=== PATIENT | male | born 1950 | race Caucasian/White ===

== ENCOUNTER 2018-11-28 07:47 | Day surgery (SDC) | payer OTHER ==
[~2018-11-28] VITALS: Ht 180.3 cm; Wt 96.5 kg
[~2018-11-28 07:47] MED LIST: 24HR ALLERGY REL5 MG PO; ATOR10 PO; Aspirin EC81 MG PO; CEFP200 PO; CIPR500 PO; CLIND PH-BENZOY45 GM TP; CLOP75 PO; DIAZ5 PO; DOCU100 PO; EZET10; EZET10 PO; FISH OIL 1,0001 EAC1 PO; Flomax0.4 MG PO; HYDACE5 PO; Hydrocodone-Ap1 EA23 PO; LEVFLO500 PO; LEVOCETIRIZINE D5 MG PO; METR500 PO; Magnesium200 MG; Norco 5-325 Ta1 EACH PO; PRAV20 PO; Pravastatin Sod40 MG PO; Prinivil10 MG PO; RXHYDACE PO; TAMS.4ER PO; UBID100 PO; Viagra100 MG PO; ZINC15
== END 2018-11-28 10:45 | disposition home or self-care (01) ==
LOC: ORSCSDS 07:47
PROVIDERS: Podiatrist Foot & Ankle Surgery
PROC: 0QBR0ZZ Excision of Left Toe Phalanx, Open Approach (ICD-10-PCS; principal; 2018-11-28 09:00)
PROC: 0HDRXZZ Extraction of Toe Nail, External Approach (ICD-10-PCS; principal; 2018-11-28 09:00)
DX: M1A.9XX1 Chronic gout, unspecified, with tophus (tophi) (principal); L60.0 Ingrowing nail; M25.70 Osteophyte, unspecified joint; I10 Essential (primary) hypertension; Z79.899 Other long term (current) drug therapy; Z79.82 Long term (current) use of aspirin
CPT/HCPCS: 88305; J0690; J2250; J3010; J7120

== ENCOUNTER → 2018-12-04 | Outpatient (CLI) | payer OTHER | END | disposition home or self-care (01) | LOC: LAB SHORT 12:02 → PLD 12:02 | DX: L57.8 Other skin changes due to chronic exposure to nonionizing radiation (principal); L98.9 Disorder of the skin and subcutaneous tissue, unspecified | CPT/HCPCS: 88305; 88312 ==

== ENCOUNTER 2019-01-15 09:19 | Day surgery (SDC) | payer OTHER ==
[~2019-01-15] VITALS: Ht 180.3 cm; Wt 93.9 kg
[~2019-01-15 09:19] MED LIST changes: +AZO BLADDER CO300 MG PO; +FLAXSEED1000 MG PO; +PROSTATE HEALT1 EACH PO
[2019-01-15] MEDS ORDERED: ALLO100 (09:53)
--- NOTE | 2019-01-15 10:07 | NUR ---
01/15/[address] & DR. SHAJI TALAVERA TO PROCEED WITH NURSE SEDATION.
== END 2019-01-15 11:36 | disposition home or self-care (01) ==
LOC: ORSCSDS 09:19
PROVIDERS: Surgery
PROC: 0DBL8ZX Excision of Transverse Colon, Via Natural or Artificial Opening Endoscopic, Diagnostic (ICD-10-PCS; principal; 2019-01-15 10:15)
PROC: 0DBM8ZX Excision of Descending Colon, Via Natural or Artificial Opening Endoscopic, Diagnostic (ICD-10-PCS; principal; 2019-01-15 10:15)
DX: Z12.11 Encounter for screening for malignant neoplasm of colon (principal); D12.3 Benign neoplasm of transverse colon; D12.4 Benign neoplasm of descending colon; I10 Essential (primary) hypertension; Z79.01 Long term (current) use of anticoagulants; Z79.82 Long term (current) use of aspirin; Z79.899 Other long term (current) drug therapy
CPT/HCPCS: 88305; J7120

== ENCOUNTER → 2019-07-16 | Outpatient (CLI) | payer OTHER ==
[~2019-07-16] MED LIST changes: +ALLO100
[2019-07-16 08:33] LABS: Source, Urine Clean Catch
[2019-07-16 09:08] LABS: Appearance, Urine Clear (Clear); Bilirubin, Urine Neg (Neg); Blood, Urine 3+ (Neg); Color, Urine Yellow (P-Yellow); Glucose Qualitative, Urine Neg (Neg); Ketones, Urine Neg (Neg); Leukocyte Esterase, Urine 1+ (Neg); Nitrite, Urine Neg (Neg); Protein, Urine 2+ (Neg); Urobilinogen, Urine NORM (Normal)
[2019-07-16 09:24] LABS: Squamous Epithelial Cells Few /hpf (Few)
[2019-07-16 09:25] LABS: Bacteria Rare /hpf
== END | disposition home or self-care (01) ==
LOC: LAB 08:30 → LAB SHORT 08:30
PROVIDERS: Radiology Therapeutic Radiology
DX: R30.0 Dysuria (principal)
CPT/HCPCS: 81001; 87086

== ENCOUNTER → 2020-02-17 | Outpatient (CLI) | payer OTHER | END | disposition home or self-care (01) | LOC: LAB SHORT 13:00 → PLD 13:00 | DX: D36.11 Benign neoplasm of peripheral nerves and autonomic nervous system of face, head, and neck (principal) | CPT/HCPCS: 88305 ==

== ENCOUNTER 2021-03-17 21:04 | Observation (INO) | payer OTHER ==
[~2021-03-17] VITALS: Ht 180.3 cm; Wt 100.5 kg
[~2021-03-17 21:04] MED LIST changes: -ALLO100; +ALLO100 PO
[2021-03-17] MEDS ORDERED: LEVOCETIRIZINE D5 MG PO (21:18)
[2021-03-17] MEDS ORDERED: EZETIMIBE10 M6 PO (21:19)
[2021-03-17 21:26] LABS: BASOPHILS ABSOLUTE AUTO 0.03 K/mm3 (0.00-0.23); BASOPHILS PERCENT AUTO 1 % (0-2); EOSINOPHILS ABSOLUTE AUTO 0.32 K/mm3 (0.00-0.68); EOSINOPHILS PERCENT AUTO 7 % (0-6); Hematocrit 41.8 % (37.0-53.0); Hemoglobin 13.9 g/dL (13.5-17.5); IMMATURE GRAN ABSOLUTE AUTO 0.01 K/mm3 (0.00-0.10); IMMATURE GRAN PERCENT AUTO 0 % (0-1); LYMPHOCYTES ABSOLUTE AUTO 1.09 K/mm3 (0.84-5.20); LYMPHOCYTES PERCENT AUTO 22 % (21-46); MONOCYTES ABSOLUTE AUTO 0.49 K/mm3 (0.16-1.47); MONOCYTES PERCENT AUTO 10 % (4-13); Mean Corpuscular HGB 29.3 pg (26.0-34.0); Mean Corpuscular HGB Conc 33.3 g/dL (31.5-36.5); Mean Corpuscular Volume 88 fL (80-100); Mean Platelet Volume 9.6 fL (9.1-12.4); NEUTROPHILS PERCENT AUTO 61 % (41-73); Platelet Count 188 K/mm3 (150-400); RDW Coefficient Variation 13.2 % (11.7-14.2); RDW Standard Deviation 42.9 fL (35.1-46.3); Red Blood Cell Count 4.74 M/mm3 (4.30-5.90); White Blood Cell Count 4.94 K/mm3 (4.00-11.30)
[2021-03-17 21:41] LABS: Alanine Aminotransfer (ALT/SGP 35 U/L (12-78); Albumin, Blood 3.6 g/dL (3.4-5.0); Alk Phos 74 U/L (50-136); Anion Gap 5 mmol/L (6-16); Aspartate Aminotrans (AST/SGOT 20 U/L (12-37); Bilirubin, Total 0.2 mg/dL (0.1-1.0); Blood Urea Nitrogen 20 mg/dL (8-24); Bun/Creatinine Ratio 18.7 (12.0-20.0); CO2, Blood 26 mmol/L (21-32); Calcium, Blood 8.7 mg/dL (8.5-10.1); Chloride, Blood 111 mmol/L (98-108); Creatinine, Blood 1.07 mg/dL (0.60-1.20); Globulin, Blood 3.6 g/dL (2.2-4.0); Glomerular Filtration Rate >60 (60-); Glucose, Blood 142 mg/dL (70-99); Potassium, Blood 3.4 mmol/L (3.5-5.5); Sodium, Blood 142 mmol/L (136-145); Total Protein, Blood 7.2 g/dL (6.4-8.2); Troponin I <0.015 ng/mL (0.000-0.040)
[2021-03-18] MEDS ORDERED: MELATONIN5 M1 PO (00:24)
[2021-03-18] MEDS ORDERED: MAGNESIUM OXID500 MG (00:25)
--- NOTE | 2021-03-18 04:49 | NUR ---
SHIFT SUMMARY PATIENT ADMITED TO UNIT FROM EMERGENCY ROOM. VSS. CARDIAC RHYTHM IS SINUS MICHELLE WITH HR OF 57. PATIENT DENIES CP. ALERT AND ORIENTED X4. PATIENT WAS WORKING AT HOME WHEN HE BEGAN EXPERIENCING CHEST PAIN. PATIENT HAS A HISTORY OF HAVING 2 SYNCOPAL EPISODES THIS PAST YEAR. NO ACUTE CHANGES SINCE ADMISSION. WILL CONTINUE TO MONITOR UNTIL END OF SHIFT.
[2021-03-18 05:17] LABS: BASOPHILS ABSOLUTE AUTO 0.04 K/mm3 (0.00-0.23); BASOPHILS PERCENT AUTO 1 % (0-2); EOSINOPHILS ABSOLUTE AUTO 0.36 K/mm3 (0.00-0.68); EOSINOPHILS PERCENT AUTO 9 % (0-6); Hemoglobin 13.1 g/dL (13.5-17.5); IMMATURE GRAN ABSOLUTE AUTO 0.01 K/mm3 (0.00-0.10); IMMATURE GRAN PERCENT AUTO 0 % (0-1); LYMPHOCYTES PERCENT AUTO 26 % (21-46); MONOCYTES ABSOLUTE AUTO 0.49 K/mm3 (0.16-1.47); MONOCYTES PERCENT AUTO 12 % (4-13); Mean Corpuscular HGB 29.2 pg (26.0-34.0); Mean Corpuscular HGB Conc 32.8 g/dL (31.5-36.5); Mean Corpuscular Volume 89 fL (80-100); Mean Platelet Volume 9.6 fL (9.1-12.4); NEUTROPHILS ABSOLUTE AUTO 2.24 K/mm3 (1.96-9.15); NEUTROPHILS PERCENT AUTO 53 % (41-73); Platelet Count 183 K/mm3 (150-400); RDW Coefficient Variation 13.4 % (11.7-14.2); RDW Standard Deviation 43.8 fL (35.1-46.3); Red Blood Cell Count 4.49 M/mm3 (4.30-5.90); White Blood Cell Count 4.24 K/mm3 (4.00-11.30)
[2021-03-18 05:37] LABS: Anion Gap 4 mmol/L (6-16); Blood Urea Nitrogen 18 mg/dL (8-24); Bun/Creatinine Ratio 16.8 (12.0-20.0); CO2, Blood 25 mmol/L (21-32); Calcium, Blood 8.2 mg/dL (8.5-10.1); Chloride, Blood 113 mmol/L (98-108); Creatinine, Blood 1.07 mg/dL (0.60-1.20); Glomerular Filtration Rate >60 (60-); Glucose, Blood 87 mg/dL (70-99); Sodium, Blood 142 mmol/L (136-145); Troponin I <0.015 ng/mL (0.000-0.040)
--- NOTE | 2021-03-18 07:57 | NUR ---
pt laying in bed, watching tv, a/ox3, pleasant and cooperative with care, follows commands well, denies pain, states he had severe pain for about an hr, but is gone now, lungs are clear t/o, resp even and unlabored, no cough noted, hrr, sb to sr with occ pvc's, no edema noted, ppp+2, cap refill <3sec, vs stable, afebrile, iv site is clear and patent, btx4, abd flat soft nontender, reports voiding and regular bms without diff, skin c/w/d, maew, abdelrahman, call light in reach. will be having a stress test this am, and npo at this time.
--- NOTE | 2021-03-18 12:31 | NUR ---
Echocardiogram completed.
--- NOTE | 2021-03-18 16:05 | NUR ---
pt completed stress test. here to discharge him. at bedside.
[2021-03-18] MEDS ORDERED: METO50ER PO (16:07)
[2021-03-18] MEDS ORDERED: XARELTO20 MG PO (16:08)
--- NOTE | 2021-03-18 16:50 | NUR ---
went over pt discharge instructions, did some education on risk of bleeding while on blood thinners and what to look for. he verbalized understanding, new medications faxed to [facility]. iv removed intact, left via wheelchair with byproducts extractor in attendence.
== END 2021-03-18 16:44 | disposition home or self-care (01) ==
LOC: ER 21:04 → PCU 21:05
PROVIDERS: Emergency Medicine; Nurse Practitioner Acute Care; ADMIT Internal Medicine
DX: I20.9 Angina pectoris, unspecified (principal); I48.0 Paroxysmal atrial fibrillation; E78.00 Pure hypercholesterolemia, unspecified; I10 Essential (primary) hypertension; E87.6 Hypokalemia; K57.92 Diverticulitis of intestine, part unspecified, without perforation or abscess without bleeding; M10.9 Gout, unspecified; Z88.8 Allergy status to other drugs, medicaments and biological substances; Z85.46 Personal history of malignant neoplasm of prostate; Z87.828 Personal history of other (healed) physical injury and trauma
CPT/HCPCS: 36415; 71045; 78452; 80048; 80053; 84484; 85025; 93005; 93010; 93017; 93306; 96372; 99285-25; A9270; A9500; G0378; J0280; J1650; J2785

== ENCOUNTER 2021-03-27 21:41 | Emergency (ER) | payer OTHER ==
[~2021-03-27] VITALS: Ht 180.3 cm; Wt 97.5 kg
[~2021-03-27 21:41] MED LIST changes: +EZETIMIBE10 M6 PO; +MAGNESIUM OXID500 MG; +MELATONIN5 M1 PO; +METO50ER PO; +XARELTO20 MG PO
[2021-03-27 22:19] LABS: BASOPHILS ABSOLUTE AUTO 0.05 K/mm3 (0.00-0.23); BASOPHILS PERCENT AUTO 1 % (0-2); EOSINOPHILS ABSOLUTE AUTO 0.36 K/mm3 (0.00-0.68); EOSINOPHILS PERCENT AUTO 5 % (0-6); Hematocrit 42.6 % (37.0-53.0); Hemoglobin 13.9 g/dL (13.5-17.5); IMMATURE GRAN ABSOLUTE AUTO 0.02 K/mm3 (0.00-0.10); IMMATURE GRAN PERCENT AUTO 0 % (0-1); LYMPHOCYTES ABSOLUTE AUTO 1.46 K/mm3 (0.84-5.20); LYMPHOCYTES PERCENT AUTO 20 % (21-46); MONOCYTES ABSOLUTE AUTO 0.81 K/mm3 (0.16-1.47); MONOCYTES PERCENT AUTO 11 % (4-13); Mean Corpuscular HGB 28.8 pg (26.0-34.0); Mean Corpuscular HGB Conc 32.6 g/dL (31.5-36.5); Mean Corpuscular Volume 88 fL (80-100); Mean Platelet Volume 9.8 fL (9.1-12.4); NEUTROPHILS ABSOLUTE AUTO 4.79 K/mm3 (1.96-9.15); NEUTROPHILS PERCENT AUTO 64 % (41-73); Platelet Count 195 K/mm3 (150-400); RDW Coefficient Variation 13.2 % (11.7-14.2); RDW Standard Deviation 43.3 fL (35.1-46.3); Red Blood Cell Count 4.82 M/mm3 (4.30-5.90); White Blood Cell Count 7.49 K/mm3 (4.00-11.30)
[2021-03-27 22:45] LABS: Albumin/Globulin Ratio 1.1 (0.8-1.8); Bilirubin, Total 0.4 mg/dL (0.1-1.0); Bun/Creatinine Ratio 23.9 (12.0-20.0); Calcium, Blood 9.1 mg/dL (8.5-10.1); Creatinine, Blood 1.38 mg/dL (0.60-1.20); Globulin, Blood 3.5 g/dL (2.2-4.0); Potassium, Blood 3.7 mmol/L (3.5-5.5); Total Protein, Blood 7.5 g/dL (6.4-8.2)
== END 2021-03-28 01:03 | disposition home or self-care (01) ==
LOC: ER 21:41
PROVIDERS: Physician Assistant
DX: K62.5 Hemorrhage of anus and rectum (principal); Z79.01 Long term (current) use of anticoagulants; I10 Essential (primary) hypertension; E78.5 Hyperlipidemia, unspecified; I48.91 Unspecified atrial fibrillation; Z88.8 Allergy status to other drugs, medicaments and biological substances; Z79.899 Other long term (current) drug therapy
CPT/HCPCS: 80053; 85025; 86850; 86900; 86901; 99284

== ENCOUNTER 2021-04-06 08:30 | Day surgery (SDC) | payer OTHER ==
[~2021-04-06] VITALS: Ht 180.3 cm; Wt 98.6 kg
== END 2021-04-06 10:58 | disposition home or self-care (01) ==
LOC: ORSCSDS 08:30
PROVIDERS: Surgery
PROC: 0DBK8ZX Excision of Ascending Colon, Via Natural or Artificial Opening Endoscopic, Diagnostic (ICD-10-PCS; principal; 2021-04-06 09:45)
PROC: 0DBM8ZX Excision of Descending Colon, Via Natural or Artificial Opening Endoscopic, Diagnostic (ICD-10-PCS; principal; 2021-04-06 09:45)
DX: K62.5 Hemorrhage of anus and rectum (principal); D12.2 Benign neoplasm of ascending colon; D12.4 Benign neoplasm of descending colon; K62.7 Radiation proctitis; I48.0 Paroxysmal atrial fibrillation; Z79.01 Long term (current) use of anticoagulants; E78.5 Hyperlipidemia, unspecified; I10 Essential (primary) hypertension; Z85.46 Personal history of malignant neoplasm of prostate; Z87.19 Personal history of other diseases of the digestive system; Z79.899 Other long term (current) drug therapy
CPT/HCPCS: 88305; J2704; J7120

== ENCOUNTER → 2021-05-30 | Outpatient (CLI) | payer OTHER ==
[2021-05-30 20:07] LABS: Bun/Creatinine Ratio 20.9 (12.0-20.0); Calcium, Blood 8.8 mg/dL (8.5-10.1); Creatinine, Blood 1.29 mg/dL (0.60-1.20); Potassium, Blood 4.1 mmol/L (3.5-5.5)
== END | disposition home or self-care (01) ==
LOC: LAB SHORT 18:21 → LAB 18:21
PROVIDERS: Family Medicine
DX: N28.9 Disorder of kidney and ureter, unspecified (principal)
CPT/HCPCS: 80048

== ENCOUNTER → 2021-06-08 | Outpatient (CLI) | payer OTHER ==
[2021-06-08 15:00] LABS: Source, Urine Clean Catch
[2021-06-08 17:07] LABS: Bacteria Few /hpf; Red Blood Cells, Urine 0-2 /hpf (0-2); Squamous Epithelial Cells Rare /hpf (Few); White Blood Cells, Urine 0-2 /hpf (0-5)
== END | disposition home or self-care (01) ==
LOC: LAB 11:30 → LAB SHORT 11:30
PROVIDERS: Family Medicine
DX: R31.9 Hematuria, unspecified (principal)
CPT/HCPCS: 81015; 87086

== ENCOUNTER 2021-06-27 01:51 | Day surgery (SDC) | payer OTHER | END 2021-06-27 23:10 | disposition home or self-care (01) | LOC: WOUND 01:51 | DX: N30.41 Irradiation cystitis with hematuria (principal); R30.0 Dysuria; Z85.46 Personal history of malignant neoplasm of prostate; I10 Essential (primary) hypertension; M10.9 Gout, unspecified; Z79.01 Long term (current) use of anticoagulants; Y84.2 Radiological procedure and radiotherapy as the cause of abnormal reaction of the patient, or of later complication, without mention of misadventure at the time of the procedure; Y78.1 Therapeutic (nonsurgical) and rehabilitative radiological devices associated with adverse incidents | CPT/HCPCS: G0463 ==

== ENCOUNTER 2021-07-04 02:45 | Day surgery (SDC) | payer OTHER | END 2021-07-04 23:02 | disposition home or self-care (01) | LOC: HBO 02:45 | DX: N30.41 Irradiation cystitis with hematuria (principal); R30.0 Dysuria | CPT/HCPCS: G0277 ==

== ENCOUNTER 2021-07-05 02:11 | Day surgery (SDC) | payer OTHER | END 2021-07-05 23:52 | disposition home or self-care (01) | LOC: HBO 02:11 | DX: N30.41 Irradiation cystitis with hematuria (principal); R30.0 Dysuria | CPT/HCPCS: G0277 ==

== ENCOUNTER 2021-07-06 01:35 | Day surgery (SDC) | payer OTHER | END 2021-07-06 23:15 | disposition home or self-care (01) | LOC: HBO 01:35 | DX: N30.41 Irradiation cystitis with hematuria (principal); R30.0 Dysuria; Y84.2 Radiological procedure and radiotherapy as the cause of abnormal reaction of the patient, or of later complication, without mention of misadventure at the time of the procedure | CPT/HCPCS: G0277 ==

== ENCOUNTER 2021-07-07 01:13 | Day surgery (SDC) | payer OTHER | END 2021-07-07 23:15 | disposition home or self-care (01) | LOC: HBO 01:13 | DX: N30.41 Irradiation cystitis with hematuria (principal); R31.0 Gross hematuria; R30.0 Dysuria | CPT/HCPCS: G0277 ==

== ENCOUNTER → 2021-07-10 | Outpatient (CLI) | payer OTHER ==
[2021-07-10 15:18] LABS: BASOPHILS ABSOLUTE AUTO 0.02 K/mm3 (0.00-0.23); BASOPHILS PERCENT AUTO 0 % (0-2); EOSINOPHILS ABSOLUTE AUTO 0.29 K/mm3 (0.00-0.68); EOSINOPHILS PERCENT AUTO 5 % (0-6); Hematocrit 41.5 % (37.0-53.0); Hemoglobin 13.9 g/dL (13.5-17.5); IMMATURE GRAN ABSOLUTE AUTO 0.02 K/mm3 (0.00-0.10); IMMATURE GRAN PERCENT AUTO 0 % (0-1); LYMPHOCYTES ABSOLUTE AUTO 0.83 K/mm3 (0.84-5.20); LYMPHOCYTES PERCENT AUTO 14 % (21-46); MONOCYTES ABSOLUTE AUTO 0.62 K/mm3 (0.16-1.47); MONOCYTES PERCENT AUTO 10 % (4-13); Mean Corpuscular HGB 29.1 pg (26.0-34.0); Mean Corpuscular HGB Conc 33.5 g/dL (31.5-36.5); Mean Corpuscular Volume 87 fL (80-100); Mean Platelet Volume 9.8 fL (9.1-12.4); NEUTROPHILS ABSOLUTE AUTO 4.36 K/mm3 (1.96-9.15); NEUTROPHILS PERCENT AUTO 71 % (41-73); Platelet Count 164 K/mm3 (150-400); RDW Coefficient Variation 13.3 % (11.7-14.2); Red Blood Cell Count 4.78 M/mm3 (4.30-5.90); White Blood Cell Count 6.14 K/mm3 (4.00-11.30)
[2021-07-10 15:54] LABS: Alanine Aminotransfer (ALT/SGP 31 U/L (12-78); Albumin, Blood 3.6 g/dL (3.4-5.0); Albumin/Globulin Ratio 1.1 (0.8-1.8); Alk Phos 57 U/L (50-136); Anion Gap 5 mmol/L (6-16); Aspartate Aminotrans (AST/SGOT 18 U/L (12-37); Bilirubin, Total 0.5 mg/dL (0.1-1.0); Blood Urea Nitrogen 25 mg/dL (8-24); Bun/Creatinine Ratio 22.7 (12.0-20.0); CO2, Blood 24 mmol/L (21-32); Calcium, Blood 8.8 mg/dL (8.5-10.1); Chloride, Blood 114 mmol/L (98-108); Globulin, Blood 3.4 g/dL (2.2-4.0); Glomerular Filtration Rate >60 (60-); Glucose, Blood 100 mg/dL (70-99); Potassium, Blood 3.6 mmol/L (3.5-5.5); Sodium, Blood 143 mmol/L (136-145)
== END | disposition home or self-care (01) ==
LOC: LAB 15:14 → LAB SHORT 15:14
PROVIDERS: Physician Assistant
DX: R31.9 Hematuria, unspecified (principal)
CPT/HCPCS: 80053; 85025

== ENCOUNTER 2021-07-12 00:45 | Day surgery (SDC) | payer OTHER | END 2021-07-12 23:55 | disposition home or self-care (01) | LOC: HBO | DX: N30.41 Irradiation cystitis with hematuria (principal); R31.0 Gross hematuria | CPT/HCPCS: G0277 ==

== ENCOUNTER 2021-07-13 03:12 | Day surgery (SDC) | payer OTHER | END 2021-07-13 23:17 | disposition home or self-care (01) | LOC: HBO 03:12 | PROC: 5A05121 Extracorporeal Hyperbaric Oxygenation, Intermittent (ICD-10-PCS; principal; 2021-07-13) | DX: L59.8 Other specified disorders of the skin and subcutaneous tissue related to radiation (principal); N30.41 Irradiation cystitis with hematuria; Y84.2 Radiological procedure and radiotherapy as the cause of abnormal reaction of the patient, or of later complication, without mention of misadventure at the time of the procedure | CPT/HCPCS: G0277 ==

== ENCOUNTER 2021-07-14 01:35 | Day surgery (SDC) | payer OTHER | END 2021-07-14 23:28 | disposition home or self-care (01) | LOC: HBO 01:35 | DX: N30.41 Irradiation cystitis with hematuria (principal); R31.0 Gross hematuria; R30.0 Dysuria | CPT/HCPCS: G0277 ==

== ENCOUNTER 2021-07-17 02:40 | Day surgery (SDC) | payer OTHER | END 2021-07-17 23:03 | disposition home or self-care (01) | LOC: HBO 02:40 | DX: N30.41 Irradiation cystitis with hematuria (principal); R31.0 Gross hematuria; R30.0 Dysuria | CPT/HCPCS: G0277 ==

== ENCOUNTER 2021-07-19 00:11 | Day surgery (SDC) | payer OTHER | END 2021-07-19 12:00 | disposition home or self-care (01) | LOC: HBO 00:11 | DX: N30.41 Irradiation cystitis with hematuria (principal); R31.0 Gross hematuria; R30.0 Dysuria | CPT/HCPCS: G0277 ==

== ENCOUNTER 2021-07-20 01:16 | Day surgery (SDC) | payer OTHER | END 2021-07-20 23:07 | disposition home or self-care (01) | LOC: HBO 01:16 | DX: N30.41 Irradiation cystitis with hematuria (principal); R31.0 Gross hematuria; R30.0 Dysuria | CPT/HCPCS: G0277 ==

== ENCOUNTER 2021-07-21 04:26 | Day surgery (SDC) | payer OTHER | END 2021-07-21 23:25 | disposition home or self-care (01) | LOC: HBO 04:26 | DX: N30.41 Irradiation cystitis with hematuria (principal); R31.0 Gross hematuria; R30.0 Dysuria | CPT/HCPCS: G0277 ==

== ENCOUNTER 2021-07-24 04:51 | Day surgery (SDC) | payer OTHER | END 2021-07-24 23:50 | disposition home or self-care (01) | LOC: HBO 04:51 | DX: N30.41 Irradiation cystitis with hematuria (principal); R30.0 Dysuria; Y84.2 Radiological procedure and radiotherapy as the cause of abnormal reaction of the patient, or of later complication, without mention of misadventure at the time of the procedure | CPT/HCPCS: G0277 ==

== ENCOUNTER 2021-07-25 02:46 | Day surgery (SDC) | payer OTHER | END 2021-07-25 22:48 | disposition home or self-care (01) | LOC: HBO 02:46 | DX: N30.41 Irradiation cystitis with hematuria (principal); R31.0 Gross hematuria; R30.0 Dysuria | CPT/HCPCS: G0277 ==

== ENCOUNTER 2021-07-27 00:42 | Day surgery (SDC) | payer OTHER | END 2021-07-27 23:07 | disposition home or self-care (01) | LOC: HBO 00:42 | DX: N30.41 Irradiation cystitis with hematuria (principal); R31.0 Gross hematuria; R30.0 Dysuria | CPT/HCPCS: G0277 ==

== ENCOUNTER 2021-07-28 00:38 | Day surgery (SDC) | payer OTHER | END 2021-07-28 12:00 | disposition home or self-care (01) | LOC: HBO 00:38 | DX: N30.41 Irradiation cystitis with hematuria (principal); L59.8 Other specified disorders of the skin and subcutaneous tissue related to radiation; R30.0 Dysuria; Y84.2 Radiological procedure and radiotherapy as the cause of abnormal reaction of the patient, or of later complication, without mention of misadventure at the time of the procedure | CPT/HCPCS: G0277 ==

== ENCOUNTER 2021-07-31 05:24 | Day surgery (SDC) | payer OTHER | END 2021-07-31 23:30 | disposition home or self-care (01) | LOC: HBO 05:24 | DX: N30.41 Irradiation cystitis with hematuria (principal); R31.0 Gross hematuria; R30.0 Dysuria | CPT/HCPCS: G0277 ==

== ENCOUNTER 2021-08-01 01:03 | Day surgery (SDC) | payer OTHER | END 2021-08-01 23:32 | disposition home or self-care (01) | LOC: HBO 01:03 | DX: N30.41 Irradiation cystitis with hematuria (principal); R31.0 Gross hematuria; R30.0 Dysuria | CPT/HCPCS: G0277 ==

== ENCOUNTER → 2021-08-01 | Outpatient (CLI) | payer OTHER | END | disposition home or self-care (01) | LOC: LAB SHORT 08:48 | DX: D04.39 Carcinoma in situ of skin of other parts of face (principal); L82.1 Other seborrheic keratosis; L57.0 Actinic keratosis; L85.8 Other specified epidermal thickening | CPT/HCPCS: 88305 ==

== ENCOUNTER 2021-08-02 01:56 | Day surgery (SDC) | payer OTHER | END 2021-08-02 23:08 | disposition home or self-care (01) | LOC: HBO 01:56 | DX: N30.41 Irradiation cystitis with hematuria (principal); R31.0 Gross hematuria; R30.0 Dysuria | CPT/HCPCS: G0277 ==

== ENCOUNTER 2021-08-03 01:54 | Day surgery (SDC) | payer OTHER | END 2021-08-03 12:00 | disposition home or self-care (01) | LOC: HBO 01:54 | DX: N30.41 Irradiation cystitis with hematuria (principal) | CPT/HCPCS: G0277; G0463 ==

== ENCOUNTER 2021-08-04 01:18 | Day surgery (SDC) | payer OTHER | END 2021-08-04 23:52 | disposition home or self-care (01) | LOC: HBO 01:18 | DX: N30.41 Irradiation cystitis with hematuria (principal); R31.0 Gross hematuria; R30.0 Dysuria | CPT/HCPCS: G0277 ==

== ENCOUNTER 2021-08-07 03:02 | Day surgery (SDC) | payer OTHER | END 2021-08-07 22:57 | disposition home or self-care (01) | LOC: HBO 03:02 | DX: L59.8 Other specified disorders of the skin and subcutaneous tissue related to radiation (principal); N30.41 Irradiation cystitis with hematuria; Y84.2 Radiological procedure and radiotherapy as the cause of abnormal reaction of the patient, or of later complication, without mention of misadventure at the time of the procedure | CPT/HCPCS: G0277 ==

== ENCOUNTER 2021-08-08 01:17 | Day surgery (SDC) | payer OTHER | END 2021-08-08 23:06 | disposition home or self-care (01) | LOC: HBO 01:17 | DX: N30.41 Irradiation cystitis with hematuria (principal); R31.0 Gross hematuria; R30.0 Dysuria | CPT/HCPCS: G0277 ==

== ENCOUNTER 2021-08-09 05:13 | Day surgery (SDC) | payer OTHER | END 2021-08-09 22:49 | disposition home or self-care (01) | LOC: HBO 05:13 | DX: N30.41 Irradiation cystitis with hematuria (principal) | CPT/HCPCS: G0277 ==

== ENCOUNTER 2021-08-10 01:00 | Day surgery (SDC) | payer OTHER | END 2021-08-10 23:12 | disposition home or self-care (01) | LOC: HBO 01:00 | DX: N30.41 Irradiation cystitis with hematuria (principal); R30.0 Dysuria; L59.8 Other specified disorders of the skin and subcutaneous tissue related to radiation; Y84.2 Radiological procedure and radiotherapy as the cause of abnormal reaction of the patient, or of later complication, without mention of misadventure at the time of the procedure | CPT/HCPCS: G0277 ==

== ENCOUNTER 2021-08-11 04:15 | Day surgery (SDC) | payer OTHER | END 2021-08-11 23:49 | disposition home or self-care (01) | LOC: HBO 04:15 | DX: N30.41 Irradiation cystitis with hematuria (principal); R31.0 Gross hematuria; R30.0 Dysuria | CPT/HCPCS: G0277 ==

== ENCOUNTER 2021-08-14 03:50 | Day surgery (SDC) | payer OTHER | END 2021-08-14 12:00 | disposition home or self-care (01) | LOC: HBO 03:50 | DX: N30.41 Irradiation cystitis with hematuria (principal); R31.0 Gross hematuria; R30.0 Dysuria | CPT/HCPCS: G0277 ==

== ENCOUNTER 2021-08-15 03:10 | Day surgery (SDC) | payer OTHER | END 2021-08-15 12:00 | disposition home or self-care (01) | LOC: HBO 03:10 | PROC: 5A05121 Extracorporeal Hyperbaric Oxygenation, Intermittent (ICD-10-PCS; principal; 2021-08-15) | DX: L59.8 Other specified disorders of the skin and subcutaneous tissue related to radiation (principal); N30.41 Irradiation cystitis with hematuria; Y84.2 Radiological procedure and radiotherapy as the cause of abnormal reaction of the patient, or of later complication, without mention of misadventure at the time of the procedure | CPT/HCPCS: G0277 ==

== ENCOUNTER 2021-08-16 04:38 | Day surgery (SDC) | payer OTHER | END 2021-08-16 23:00 | disposition home or self-care (01) | LOC: HBO 04:38 | DX: L59.8 Other specified disorders of the skin and subcutaneous tissue related to radiation (principal); N30.41 Irradiation cystitis with hematuria; Y84.2 Radiological procedure and radiotherapy as the cause of abnormal reaction of the patient, or of later complication, without mention of misadventure at the time of the procedure | CPT/HCPCS: G0277 ==

== ENCOUNTER 2021-08-17 00:52 | Day surgery (SDC) | payer OTHER | END 2021-08-17 23:24 | disposition home or self-care (01) | LOC: HBO 00:52 | DX: N30.41 Irradiation cystitis with hematuria (principal); R30.0 Dysuria; Y84.2 Radiological procedure and radiotherapy as the cause of abnormal reaction of the patient, or of later complication, without mention of misadventure at the time of the procedure | CPT/HCPCS: G0277 ==

== ENCOUNTER 2021-08-18 03:16 | Day surgery (SDC) | payer OTHER | END 2021-08-18 22:58 | disposition home or self-care (01) | LOC: HBO 03:16 | DX: N30.41 Irradiation cystitis with hematuria (principal); R30.0 Dysuria; L59.8 Other specified disorders of the skin and subcutaneous tissue related to radiation; Y84.2 Radiological procedure and radiotherapy as the cause of abnormal reaction of the patient, or of later complication, without mention of misadventure at the time of the procedure | CPT/HCPCS: G0277 ==

== ENCOUNTER 2021-08-21 05:43 | Day surgery (SDC) | payer OTHER | END 2021-08-21 22:54 | disposition home or self-care (01) | LOC: HBO 05:43 | DX: N30.41 Irradiation cystitis with hematuria (principal); R31.0 Gross hematuria; R30.0 Dysuria | CPT/HCPCS: G0277 ==

== ENCOUNTER 2021-08-23 01:30 | Day surgery (SDC) | payer OTHER | END 2021-08-23 23:32 | disposition home or self-care (01) | LOC: HBO 01:30 | DX: N30.41 Irradiation cystitis with hematuria (principal); R30.0 Dysuria; L59.8 Other specified disorders of the skin and subcutaneous tissue related to radiation; Y84.2 Radiological procedure and radiotherapy as the cause of abnormal reaction of the patient, or of later complication, without mention of misadventure at the time of the procedure | CPT/HCPCS: G0277 ==

== ENCOUNTER 2021-08-24 01:32 | Day surgery (SDC) | payer OTHER | END 2021-08-24 23:14 | disposition home or self-care (01) | LOC: HBO 01:32 | DX: N30.41 Irradiation cystitis with hematuria (principal); R31.0 Gross hematuria; R30.0 Dysuria | CPT/HCPCS: G0277 ==

== ENCOUNTER 2021-08-25 05:32 | Day surgery (SDC) | payer OTHER | END 2021-08-25 23:52 | disposition home or self-care (01) | LOC: HBO 05:32 | DX: N30.41 Irradiation cystitis with hematuria (principal) | CPT/HCPCS: G0277 ==

== ENCOUNTER 2021-08-28 06:00 | Day surgery (SDC) | payer OTHER | END 2021-08-28 23:25 | disposition home or self-care (01) | LOC: HBO 06:00 | DX: N30.41 Irradiation cystitis with hematuria (principal) | CPT/HCPCS: G0277 ==

== ENCOUNTER 2021-08-29 01:40 | Day surgery (SDC) | payer OTHER | END 2021-08-29 23:03 | disposition home or self-care (01) | LOC: HBO 01:40 | DX: N30.41 Irradiation cystitis with hematuria (principal) | CPT/HCPCS: G0277 ==

== ENCOUNTER 2021-08-30 02:27 | Day surgery (SDC) | payer OTHER | END 2021-08-30 12:00 | disposition home or self-care (01) | LOC: HBO 02:27 | DX: N30.41 Irradiation cystitis with hematuria (principal) | CPT/HCPCS: G0277 ==

== ENCOUNTER 2021-08-31 08:00 | Day surgery (SDC) | payer OTHER | END 2021-08-31 23:59 | disposition home or self-care (01) | LOC: HBO 08:00 | DX: N30.41 Irradiation cystitis with hematuria (principal) | CPT/HCPCS: G0277 ==

== ENCOUNTER 2021-09-01 05:32 | Day surgery (SDC) | payer OTHER | END 2021-09-01 23:39 | disposition home or self-care (01) | LOC: HBO 05:32 | DX: N30.41 Irradiation cystitis with hematuria (principal) | CPT/HCPCS: G0277 ==

== ENCOUNTER 2021-09-05 01:35 | Day surgery (SDC) | payer OTHER | END 2021-09-05 22:49 | disposition home or self-care (01) | LOC: HBO 01:35 | DX: L59.8 Other specified disorders of the skin and subcutaneous tissue related to radiation (principal); N30.41 Irradiation cystitis with hematuria; Y84.2 Radiological procedure and radiotherapy as the cause of abnormal reaction of the patient, or of later complication, without mention of misadventure at the time of the procedure | CPT/HCPCS: G0277 ==

== ENCOUNTER 2021-09-06 04:49 | Day surgery (SDC) | payer OTHER | END 2021-09-06 23:06 | disposition home or self-care (01) | LOC: HBO 04:49 | DX: N30.41 Irradiation cystitis with hematuria (principal); L59.8 Other specified disorders of the skin and subcutaneous tissue related to radiation; R30.0 Dysuria; G46.4 Cerebellar stroke syndrome; Y84.2 Radiological procedure and radiotherapy as the cause of abnormal reaction of the patient, or of later complication, without mention of misadventure at the time of the procedure | CPT/HCPCS: G0277 ==

== ENCOUNTER 2021-09-07 05:30 | Day surgery (SDC) | payer OTHER | END 2021-09-07 23:31 | disposition home or self-care (01) | LOC: HBO 05:30 | DX: N30.41 Irradiation cystitis with hematuria (principal); R30.0 Dysuria; Y84.2 Radiological procedure and radiotherapy as the cause of abnormal reaction of the patient, or of later complication, without mention of misadventure at the time of the procedure | CPT/HCPCS: G0277 ==

== ENCOUNTER 2021-09-08 04:34 | Day surgery (SDC) | payer OTHER | END 2021-09-08 23:40 | disposition home or self-care (01) | LOC: HBO 04:34 | DX: N30.41 Irradiation cystitis with hematuria (principal); R31.0 Gross hematuria; R30.0 Dysuria | CPT/HCPCS: G0277 ==

== ENCOUNTER 2021-09-12 03:24 | Day surgery (SDC) | payer OTHER | END 2021-09-12 23:41 | disposition home or self-care (01) | LOC: HBO 03:24 | DX: N30.41 Irradiation cystitis with hematuria (principal); L59.8 Other specified disorders of the skin and subcutaneous tissue related to radiation; Y84.2 Radiological procedure and radiotherapy as the cause of abnormal reaction of the patient, or of later complication, without mention of misadventure at the time of the procedure | CPT/HCPCS: G0277 ==

== ENCOUNTER 2021-09-13 03:19 | Day surgery (SDC) | payer OTHER | END 2021-09-13 23:54 | disposition home or self-care (01) | LOC: HBO 03:19 | DX: N30.41 Irradiation cystitis with hematuria (principal) | CPT/HCPCS: G0277 ==

== ENCOUNTER 2021-09-14 03:53 | Day surgery (SDC) | payer OTHER | END 2021-09-14 22:51 | disposition home or self-care (01) | LOC: HBO 03:53 | DX: N30.41 Irradiation cystitis with hematuria (principal) | CPT/HCPCS: G0277 ==

== ENCOUNTER 2021-09-15 04:24 | Day surgery (SDC) | payer OTHER | END 2021-09-15 23:00 | disposition home or self-care (01) | LOC: HBO 04:24 | DX: N30.41 Irradiation cystitis with hematuria (principal) | CPT/HCPCS: G0277 ==

== ENCOUNTER 2021-09-25 03:12 | Day surgery (SDC) | payer OTHER | END 2021-09-25 23:03 | disposition home or self-care (01) | LOC: HBO 03:12 | DX: N30.41 Irradiation cystitis with hematuria (principal) | CPT/HCPCS: G0277 ==

== ENCOUNTER 2021-09-27 01:58 | Day surgery (SDC) | payer OTHER | END 2021-09-27 23:14 | disposition home or self-care (01) | LOC: WOUND 01:58 | DX: N30.41 Irradiation cystitis with hematuria (principal) | CPT/HCPCS: G0463 ==

== ENCOUNTER 2021-09-27 01:59 | Day surgery (SDC) | payer OTHER | END 2021-09-27 23:14 | disposition home or self-care (01) | LOC: HBO 01:59 | DX: N30.41 Irradiation cystitis with hematuria (principal) | CPT/HCPCS: G0277 ==

== ENCOUNTER 2021-09-28 01:03 | Day surgery (SDC) | payer OTHER | END 2021-09-28 23:53 | disposition home or self-care (01) | LOC: HBO 01:03 | DX: N30.41 Irradiation cystitis with hematuria (principal); R30.0 Dysuria; L59.8 Other specified disorders of the skin and subcutaneous tissue related to radiation; Y84.2 Radiological procedure and radiotherapy as the cause of abnormal reaction of the patient, or of later complication, without mention of misadventure at the time of the procedure | CPT/HCPCS: G0277 ==

== ENCOUNTER 2021-09-29 01:35 | Day surgery (SDC) | payer OTHER | END 2021-09-29 12:00 | disposition home or self-care (01) | LOC: HBO 01:35 | DX: N30.41 Irradiation cystitis with hematuria (principal) | CPT/HCPCS: G0277 ==

== ENCOUNTER 2021-10-02 04:12 | Day surgery (SDC) | payer OTHER | END 2021-10-02 12:00 | disposition home or self-care (01) | LOC: HBO 04:12 | DX: N30.41 Irradiation cystitis with hematuria (principal) | CPT/HCPCS: G0277 ==

== ENCOUNTER 2021-10-03 05:49 | Day surgery (SDC) | payer OTHER | END 2021-10-03 22:56 | disposition home or self-care (01) | LOC: HBO 05:49 | DX: N30.41 Irradiation cystitis with hematuria (principal) | CPT/HCPCS: G0277 ==

== ENCOUNTER 2021-10-04 00:21 | Day surgery (SDC) | payer OTHER | END 2021-10-04 23:26 | disposition home or self-care (01) | LOC: WOUND 00:21 | DX: N30.41 Irradiation cystitis with hematuria (principal) | CPT/HCPCS: G0463 ==

== ENCOUNTER 2021-10-04 00:27 | Day surgery (SDC) | payer OTHER | END 2021-10-04 23:26 | disposition home or self-care (01) | LOC: HBO 00:27 | DX: N30.41 Irradiation cystitis with hematuria (principal); R31.0 Gross hematuria; R30.0 Dysuria | CPT/HCPCS: G0277 ==

== ENCOUNTER 2021-10-05 01:08 | Day surgery (SDC) | payer OTHER | END 2021-10-06 23:25 | disposition home or self-care (01) | LOC: HBO 01:08 | DX: N30.41 Irradiation cystitis with hematuria (principal) | CPT/HCPCS: G0277 ==

== ENCOUNTER → 2021-11-27 | Outpatient (CLI) | payer OTHER ==
[2021-11-27 20:41] LABS: Anion Gap 5 mmol/L (6-16); Blood Urea Nitrogen 15 mg/dL (8-24); Bun/Creatinine Ratio 14.3 (12.0-20.0); CHOL/HDL RATIO 3.1; CO2, Blood 27 mmol/L (21-32); Chloride, Blood 109 mmol/L (98-108); Cholesterol 160 mg/dL (50-200); Creatinine, Blood 1.05 mg/dL (0.60-1.20); Glomerular Filtration Rate >60 (60-); Glucose, Blood 97 mg/dL (70-99); HDL Cholesterol 52 mg/dL (>39); LDL/HDL RATIO 1.6; Low Density Lipoprotein Chol 82 mg/dL (0-110); Potassium, Blood 4.4 mmol/L (3.5-5.5); Sodium, Blood 141 mmol/L (136-145); Triglycerides 130 mg/dL (30-160); Very Low Density Lipoprot Chol 26 mg/dL (6-32)
== END ==
LOC: LAB SHORT 18:16
PROVIDERS: Family Medicine
DX: E78.5 Hyperlipidemia, unspecified (principal); N28.9 Disorder of kidney and ureter, unspecified
CPT/HCPCS: 80048; 80061

== ENCOUNTER → 2023-06-12 | Outpatient (CLI) | payer OTHER | LOC: LAB SHORT 15:36 → LAB 15:36 → PLD 15:36 | DX: D23.39 Other benign neoplasm of skin of other parts of face (principal); L57.0 Actinic keratosis | CPT/HCPCS: 88305 ==

== ENCOUNTER 2023-08-12 07:47 | Emergency (ER) | payer OTHER ==
[~2023-08-12] VITALS: Ht 180.3 cm; Wt 90.7 kg
[2023-08-12 09:02] LABS: BASOPHILS ABSOLUTE AUTO 0.02 K/mm3 (0.00-0.23); BASOPHILS PERCENT AUTO 0 % (0-2); EOSINOPHILS ABSOLUTE AUTO 0.17 K/mm3 (0.00-0.68); EOSINOPHILS PERCENT AUTO 3 % (0-6); Hematocrit 42.7 % (37.0-53.0); Hemoglobin 14.1 g/dL (13.5-17.5); IMMATURE GRAN ABSOLUTE AUTO 0.01 K/mm3 (0.00-0.10); IMMATURE GRAN PERCENT AUTO 0 % (0-1); LYMPHOCYTES ABSOLUTE AUTO 1.27 K/mm3 (0.84-5.20); LYMPHOCYTES PERCENT AUTO 23 % (21-46); MONOCYTES PERCENT AUTO 15 % (4-13); Mean Corpuscular HGB 30.5 pg (26.0-34.0); Mean Corpuscular Volume 92 fL (80-100); Mean Platelet Volume 9.8 fL (9.1-12.4); NEUTROPHILS ABSOLUTE AUTO 3.23 K/mm3 (1.96-9.15); NEUTROPHILS PERCENT AUTO 59 % (41-73); Platelet Count 181 K/mm3 (150-400); RDW Coefficient Variation 13.9 % (11.7-14.2); RDW Standard Deviation 46.8 fL (35.1-46.3); Red Blood Cell Count 4.62 M/mm3 (4.30-5.90)
[2023-08-12 09:31] LABS: Albumin, Blood 3.6 g/dL (3.4-5.0); Albumin/Globulin Ratio 0.9 (0.8-1.8); Bilirubin, Total 0.4 mg/dL (0.1-1.0); Calcium, Blood 9.4 mg/dL (8.5-10.1); Creatinine, Blood 1.4 mg/dL (0.60-1.20); Globulin, Blood 4.1 g/dL (2.2-4.0); Potassium, Blood 3.5 mmol/L (3.5-5.5); Total Protein, Blood 7.7 g/dL (6.4-8.2)
[2023-08-12 10:30] VITALS: BP 114/71
== END 2023-08-12 11:11 | disposition home or self-care (01) ==
LOC: ER 07:47
PROVIDERS: Physician Assistant
DX: R55 Syncope and collapse (principal); S01.111A Laceration without foreign body of right eyelid and periocular area, initial encounter; I10 Essential (primary) hypertension; E78.5 Hyperlipidemia, unspecified; W19.XXXA Unspecified fall, initial encounter; Z88.8 Allergy status to other drugs, medicaments and biological substances; Z79.899 Other long term (current) drug therapy; Z79.02 Long term (current) use of antithrombotics/antiplatelets
CPT/HCPCS: 12011; 70450; 80053; 84484; 85025; 90471; 90702; 90715; 93005; 93010; 96361-59; 96374-59; 96375-59; 99284-25; J1885; J2405; J7030

== ENCOUNTER → 2025-05-24 | Outpatient (CLI) | payer OTHER ==
[2025-05-24 17:28] LABS: BASOPHILS ABSOLUTE AUTO 0.03 K/mm3 (0.00-0.23); BASOPHILS PERCENT AUTO 1 % (0-2); EOSINOPHILS ABSOLUTE AUTO 0.40 K/mm3 (0.00-0.68); EOSINOPHILS PERCENT AUTO 7 % (0-6); Hematocrit 38.0 % (37.0-53.0); Hemoglobin 12.7 g/dL (13.5-17.5); IMMATURE GRAN ABSOLUTE AUTO 0.01 K/mm3 (0.00-0.10); IMMATURE GRAN PERCENT AUTO 0 % (0-1); LYMPHOCYTES ABSOLUTE AUTO 1.05 K/mm3 (0.84-5.20); LYMPHOCYTES PERCENT AUTO 20 % (21-46); MONOCYTES ABSOLUTE AUTO 0.49 K/mm3 (0.16-1.47); MONOCYTES PERCENT AUTO 9 % (4-13); Mean Corpuscular HGB Conc 33.4 g/dL (31.5-36.5); Mean Corpuscular Volume 91 fL (80-100); NEUTROPHILS ABSOLUTE AUTO 3.40 K/mm3 (1.96-9.15); NEUTROPHILS PERCENT AUTO 63 % (41-73); NRBC ABSOLUTE 0.00 K/mm3 (0.00-0.02); NRBC Auto 0.0 /100 WBC (0.0-0.2); Platelet Count 198 K/mm3 (150-400); RDW Coefficient Variation 13.1 % (11.7-14.2); RDW Standard Deviation 43.1 fL (35.1-46.3)
[2025-05-24 20:14] LABS: Alanine Aminotransfer (ALT/SGP 38.0 U/L (12-78); Albumin, Blood 3.6 g/dL (3.4-5.0); Albumin/Globulin Ratio 1.1 (0.8-1.8); Anion Gap 7.0 mmol/L (3-11); Aspartate Aminotrans (AST/SGOT 25.0 U/L (12-37); Bilirubin, Total 0.4 mg/dL (0.1-1.0); Blood Urea Nitrogen 24.0 mg/dL (8-24); CO2, Blood 29.0 mmol/L (21-32); Calcium, Blood 9.2 mg/dL (8.5-10.1); Chloride, Blood 109.0 mmol/L (98-108); Creatinine, Blood 1.24 mg/dL (0.60-1.20); Globulin, Blood 3.2 g/dL (2.2-4.0); Glucose, Blood 104.0 mg/dL (70-99); Potassium, Blood 3.7 mmol/L (3.5-5.5); Sodium, Blood 141.0 mmol/L (136-145); Total Protein, Blood 6.8 g/dL (6.4-8.2)
[2025-05-28 08:26] LABS: ALPHA 1 GLOBULIN 0.25 g/dL (0.19-0.46); ALPHA 2 GLOBULIN 0.50 g/dL (0.48-1.05); BETA GLOBULIN 0.66 g/dL (0.48-1.10); GAMMA 0.99 g/dL (0.62-1.51); IMMUNOFIXATION IFE Done; MONOCLONAL PROTEIN 0.42 g/dL (<=0.00); TOTAL PROTEIN, SERUM 6.5 g/dL (6.3-8.2)
== END | disposition home or self-care (01) ==
LOC: LAB 15:55 → LAB SHORT 15:55
PROVIDERS: Registered Nurse Oncology
DX: D47.2 Monoclonal gammopathy (principal)
CPT/HCPCS: 36415; 80053; 84155; 84165; 85025; 86334